=== PATIENT | male | born 2005 | race Caucasian/White ===

== ENCOUNTER 2024-04-30 12:46 | Emergency (ER) | payer MEDICAID ==
[~2024-04-30] VITALS: Ht 172.7 cm; Wt 70.0 kg
[2024-04-30 12:50] VITALS: O2SAT 98
[2024-04-30] MEDS: ONDANSETRON HCL 4MG/2ML INJ IM ONE (13:21)
[2024-04-30] MEDS: MORPHINE SULFATE 4 MG/ML INJ (FOR IV/IM USE) IV ONE (13:21)
[2024-04-30] MEDS: TETANUS, DIPHTHERIA, PERTUSSIS VAC/PF 0.5ML (>10YR OLD) IM ONE (13:51)
[2024-04-30 15:48] VITALS: BP 110/56; PULSE 74; RESP 16; TEMP 97
[2024-04-30] MEDS ORDERED: NAPR220C61 MT (16:39)
[2024-04-30] MEDS ORDERED: BO1 TP (16:40)
[2024-04-30] MEDS: BACITRACIN ZINC OINT UDPKT TOP ONE (16:45)
== END 2024-04-30 18:10 | disposition home or self-care (01) ==
LOC: ER 12:46
DX: S01.511A Laceration without foreign body of lip, initial encounter (principal); G89.11 Acute pain due to trauma; Z98.890 Other specified postprocedural states; V00.848A Other accident with standing micro-mobility pedestrian conveyance, initial encounter; Y93.89 Activity, other specified; Y92.89 Other specified places as the place of occurrence of the external cause; Y99.8 Other external cause status
CPT/HCPCS: 70450; 70486; 72125; 90715; 12013; 90471; 96372; 96374; 99291; J2405; J2270; Z7610 ×5

== ENCOUNTER 2024-04-30 19:16 | Emergency (ER) | payer MEDICAID ==
[~2024-04-30] VITALS: Ht 182.9 cm; Wt 69.0 kg
[~2024-04-30 19:16] MED LIST: BO1 TP; NAPR220C61 MT
[2024-04-30 19:17] VITALS: O2SAT 99
[2024-04-30] MEDS: LACTATED RINGERS 1,000 ML IV SCH (20:00)
[2024-04-30 20:53] LABS: BASOPHILS % 0.4 % (0.0-2.0); EOSINOPHILS % 0.4 % (0.0-5.0); HEMATOCRIT. 40.2 % (42.0-52.0); HEMOGLOBIN. 13.8 g/dL (14.0-18.0); LYMPHOCYTES % 12.2 % (20.0-50.0); MEAN CORPUSCULAR HEMOGLOBIN 31.9 pg (28.0-32.0); MEAN CORPUSCULAR HGB CONC 34.2 g/dL (31.0-37.0); MEAN PLATELET VOLUME 8.8 fl (7.4-10.4); MONOCYTES % 7.1 % (2.0-8.0); NEUTROPHILS % 79.9 % (40.0-76.0); PLATELET 189 x1000/uL (130-400); RED BLOOD CELL COUNT 4.32 mill/uL (4.7-6.1); RED CELL DISTRIBUTION WIDTH 12.8 % (11.6-14.6); WHITE BLOOD COUNT 11.6 x1000/uL (4.5-11.0)
[2024-04-30 20:56] LABS: CHLORIDE 104 mEq/L (98-107); POTASSIUM 3.3 mEq/L (3.5-5.1); SODIUM 141 mEq/L (136-145)
[2024-04-30 20:57] LABS: CARBON DIOXIDE 25 mEq/L (21-32)
[2024-04-30 20:58] LABS: CALCIUM 8.8 mg/dL (8.7-10.4)
[2024-04-30 21:02] LABS: GLUCOSE 98 mg/dL (70-105)
[2024-04-30 21:03] LABS: UREA NITROGEN BLOOD 8 mg/dL (9-23)
[2024-04-30 21:04] LABS: ALANINE AMINOTRANSFERASE 56 IU/L (10-49); ALBUMIN 4.5 g/dL (3.2-4.8); ASPARTATE AMINOTRANSFERASE 53 IU/L (<34)
[2024-04-30 21:05] LABS: BILIRUBIN TOTAL 0.8 mg/dL (0.1-1.0); PROTEIN TOTAL 6.8 g/dL (6.0-8.3)
[2024-04-30 22:23] VITALS: BP 99/57; PULSE 75; RESP 12; TEMP 98.3
[2024-05-03] MEDS ORDERED: NAPR220C61 MT (16:23)
[2024-05-03] MEDS ORDERED: BO1 TP (16:23)
== END 2024-04-30 22:33 | disposition home or self-care (01) ==
LOC: ER 19:16
DX: R55 Syncope and collapse (principal); R42 Dizziness and giddiness; R53.1 Weakness
CPT/HCPCS: 36415; 71045; 76604; 80053; 85025; 93005; 93880; 96360; 96361; 99285